=== PATIENT | male | born 1970 | race Caucasian/White ===

== ENCOUNTER 2016-08-07 13:11 | Emergency (ER) | payer OTHER ==
[~2016-08-07] VITALS: Ht 182.9 cm; Wt 94.0 kg
[~2016-08-07 13:11] MED LIST: CLOB-65 TOP; TACR0.1O TOP; UREA1CRE TOP
[2016-08-07 13:12] VITALS: TEMP 36.6; Ht 182.9 cm; Wt 94.0 kg
[2016-08-07] MEDS ORDERED: KETOROLAC TROMETHAMINE 30 MG/ML VIAL IV STA (13:26)
[2016-08-07] MEDS ORDERED: SODIUM CHLORIDE 0.9% 1000ML 1,000 ML IV STA (13:26)
[2016-08-07] MEDS ORDERED: HYDROmorphone INJ 1 MG/ML SYR IV STA ×2 (13:26→14:18)
[2016-08-07] MEDS ORDERED: ONDANSETRON INJ 2 MG/ML 2 ML VIAL IV STA (13:26)
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
[2016-08-07 13:53] LABS: BASO % 0.3 %; BASO ABS # 0.03 K/uL (0-0.2); COMPLETE YES; EOS % 5.8 %; IG% 0.3 %; LYMPH % 18.3 %; LYMPH ABS # 1.63 K/uL (1.2-3.4); MEAN CELL VOLUME 88.9 fL (80-100); MEAN CORPUSCULAR HEMOGLOBIN 31.7 pg (25-34); MEAN CORPUSCULAR HGB CONC 35.6 g/dl (32-36); MEAN PLATELET VOLUME 9.9 fL (7.4-10.4); MONO % 6.7 %; NEUT % 68.6 %; PLATELET COUNT 300 K/uL (130-400); RED BLOOD COUNT 4.61 M/uL (4.7-6.1); WHITE BLOOD COUNT 8.92 K/uL (4.8-10.8)
--- NOTE | 2016-08-07 14:05 | DIAGNOSTIC IMAGING REPORT ---
SINGLE VIEW CHEST CLINICAL HISTORY: Atypical chest pain. FINDINGS: An AP, portable, upright chest radiograph is compared to study dated 08/06/2015. The cardiomediastinal silhouette is unremarkable. Lobulated pleural-based density noted in the right lateral and right lower lung, likely representing hemothorax. There is associated atelectasis. Airspace opacities are seen at the left lung base. No pneumothorax is seen. There are acute and mildly distracted right lateral third through seventh rib fractures. IMPRESSION: 1. There are acute and distracted right lateral 3rd through 7th rib fractures. 2. There is lobulated pleural-based density seen in the right lateral and right lower lung. This likely represents hemothorax secondary to rib fractures. No pneumothorax is seen. 3. Airspace opacities are present the left lung base. This could represent atelectasis versus infectious/inflammatory pneumonitis. Clinical correlation will be required. Electronically signed by: David Navarrete M.D. 08/07/2016 2:03 PM Dictated Date/Time: 08/07/2016 1:58 PM
[2016-08-07] MEDS ORDERED: OPTIRAY 320 IV PRN (14:15)
[2016-08-07] MEDS ORDERED: METOCLOPRAMIDE HCL INJ 5 MG/ML 2 ML VIAL IV STA (14:18)
[2016-08-07 14:19] LABS: ALT/SGPT 32 U/L (12-78); AST/SGOT 23 U/L (15-37); BLOOD UREA NITROGEN 12 mg/dl (7-18); BUN/CREATININE RATIO 14.7 (10-20); CALCIUM 9.1 mg/dl (8.5-10.1); CARBON DIOXIDE 31 mmol/L (21-32); CHLORIDE 103 mmol/L (98-107); CREATININE 0.84 mg/dl (0.60-1.40); GLUCOSE 94 mg/dl (70-99); POTASSIUM 4.1 mmol/L (3.5-5.1); SODIUM 140 mmol/L (136-145)
[2016-08-07 14:21] LABS: ISTAT CREATININE 0.7 mg/dl (0.6-1.3); ISTAT HEMOGLOBIN 13.9 g/dl (14.0-18.0); ISTAT IONIZED CALCIUM 1.21 mmol/l (1.12-1.32)
[2016-08-07] MEDS ORDERED: HYDR-5688 PO (14:21)
[2016-08-07 14:25] LABS: ALKALINE PHOSPHATASE 66 U/L (45-117)
--- NOTE | 2016-08-07 14:49 | DIAGNOSTIC IMAGING REPORT ---
CT ANGIOGRAM OF THE CHEST CLINICAL HISTORY: Atypical chest pain COMPARISON STUDY: Chest x-ray dated 08/07/2016 TECHNIQUE: Following the IV administration of 119 mL of Optiray-320, CT angiogram of the thorax was performed from the thoracic inlet to the lung bases utilizing the pulmonary embolus protocol. Images are reviewed in the axial, sagittal, and coronal planes. IV contrast was administered without complication. MIP imaging was performed. CT DOSE: 581.18 mGy.cm FINDINGS: No pathologically enlarged axillary mediastinal or hilar lymph nodes were visualized. There was no evidence of thoracic aortic dilatation. There were no pulmonary artery filling defects to indicate acute pulmonary embolism. There is a svaak-rv-gjhbkkxf right pleural effusion. There are bibasal airspace opacities, likely atelectatic. There is a 5 mm solid subpleural nodule within the right upper lobe as visualized in image #[id number]. There are tiny extrapleural gas bubbles on the right. There is equivocal droplets of pleural air. There are fractures of the right third through seventh ribs. IMPRESSION: 1. No evidence of pneumothorax 2. Iwltn-qq-pqgobqeu right pleural effusion 3. Fractures the right third through seventh ribs 4. Bibasilar opacities likely atelectatic 5. Extrapleural gas bubbles on the right. Equivocal droplet of pleural air. 6. 5 mm subpleural solid nodule within the right upper lobe. Follow-up per Fleischner criteria is recommended. Please refer to below summary of Fleischner criteria recommendations for follow-up of incidental CT nodules (Gary Cantu, Guidelines for management of small pulmonary nodules detected on CT scans: A statement from the Fleischner Society, Radiology 237: [phone].) SOLID NODULES Solitary nodule size: <6 mm * low risk patients: no follow-up needed * high risk patients: optional CT at 12 months Solitary nodule size: 6-8 mm * low risk patients: follow-up at 6-12 months, then consider further follow-up at 18-24 months * high risk patients: initial follow-up CT at 6-12 months and then at 18-24 months if no change Solitary nodule size: >8 mm * either low or high risk patients - consider follow-up CT at 3 months, and/or CT-PET, and/or biopsy Multiple nodules size: <6 mm * low risk patients: no routine follow-up * high risk patients: optional CT at 12 months Multiple nodules size: 6-8 mm * low risk patients: follow-up at 3-6 months, then consider further follow-up at 18-24 months * high risk patients: follow-up at 3-6 months, then at 18-24 months if no change Multiple nodules size: >8 mm * low risk patients: follow-up at 3-6 months, then consider further follow-up at 18-24 months * high risk patients: follow-up at 3-6 months, then at 18-24 months if no change Note: newly detected indeterminate nodule in persons 35 years of age or older. * low risk patients: minimal or absent history of smoking and/or other known risk factors * high risk patients: history of smoking or of other known risk factors (e.g. first degree relative with lung cancer, or exposure to asbestos, radon, uranium) * if a nodule up to 8 mm is partly solid or is ground glass further follow-up is required after 24 months to exclude possible slow growing adenocarcinoma (AVANI) SUBSOLID NODULES Solitary pure ground-glass nodule * nodule size <6 mm - no CT follow-up required * nodule size >=6 mm - follow-up CT at 6-12 months, then every 2 years until 5 years Solitary part-solid nodule * nodule size <6 mm - no CT follow-up required * nodule size >=6 mm - follow-up CT at 3-6 months. If unchanged, and solid component remains <6 mm, then annual follow-up for 5 years Multiple subsolid nodules * nodule size <6 mm - follow-up CT at 3-6 months, consider further follow-up at 2 and 4 years if stable * nodule size >=6 mm - follow-up CT at 3-6 months, subsequent management based on the most suspicious nodule(s) Electronically signed by: Luis A Palafox M.D. 08/07/2016 2:47 PM Dictated Date/Time: 08/07/2016 2:39 PM
[2016-08-07 14:56] VITALS: O2SAT 95
[2016-08-07] MEDS ORDERED: LIDODERM (LIDOCAINE) PATCH 5% TD STA (15:01)
[2016-08-07] MEDS ORDERED: CYCLOBENZAPRINE HCL 5 MG TAB PO STA (15:01)
[2016-08-07] MEDS ORDERED: DOCU-94 PO (15:06)
[2016-08-07] MEDS ORDERED: OXYC-57 PO (15:06)
[2016-08-07] MEDS ORDERED: CYCL10TA6 PO (15:06)
[2016-08-07] MEDS ORDERED: SENN-61 PO (15:06)
[2016-08-07] MEDS ORDERED: NF656 TD (15:06)
[2016-08-07 15:11] VITALS: BP 103/62; PULSE 66; O2SAT 95
[2016-08-07] MEDS ORDERED: ALBUTEROL HFA 8 GM INHALER INH STA (15:27)
== END 2016-08-07 15:48 | disposition home or self-care (01) ==
LOC: C.EDB 13:12 → C.EDA 15:48
DX: S22.31XA Fracture of one rib, right side, initial encounter for closed fracture (principal); X58.XXXA Exposure to other specified factors, initial encounter; Z79.899 Other long term (current) drug therapy; Z83.3 Family history of diabetes mellitus; Z82.49 Family history of ischemic heart disease and other diseases of the circulatory system

== ENCOUNTER → 2016-08-13 | Outpatient (CLI) | payer OTHER ==
[~2016-08-13] MED LIST changes: -CLOB-65 TOP; +CYCL10TA6 PO; +DOCU-94 PO; +HYDR-5688 PO; +NF656 TD; +OXYC-57 PO; +SENN-61 PO; -TACR0.1O TOP; -UREA1CRE TOP
--- NOTE | 2016-08-13 15:06 | DIAGNOSTIC IMAGING REPORT ---
TWO VIEW CHEST CLINICAL HISTORY: Atypical chest pain. Rib fractures. FINDINGS: PA and lateral chest radiographs are compared to chest x-ray and chest CT dated 08/07/2016. The cardiomediastinal silhouette is unremarkable. Lobulated pleural-based fluid in the right lateral and lower lung is unchanged. There is associated atelectasis. Airspace opacities at the left lung base have improved from previous. No pneumothorax is seen. Again seen are numerous subacute and mildly distracted right sided rib fractures. IMPRESSION: 1. Again seen are numerous subacute right-sided rib fractures. 2. Unchanged lobulated pleural-based density seen in the right lateral and lower lung, likely representing pleural fluid/hemothorax secondary to rib fractures. No pneumothorax is seen. 3. Improved aeration at the left lung base as compared to 08/07/2016. Electronically signed by: David Navarrete M.D. 08/13/2016 3:04 PM Dictated Date/Time: 08/13/2016 2:57 PM
== END | disposition home or self-care (01) ==
LOC: C.RAD 14:09
PROVIDERS: ATTEND Physician Assistant
DX: J93.9 Pneumothorax, unspecified (principal)

== ENCOUNTER → 2016-08-27 | Outpatient (CLI) | payer OTHER ==
[~2016-08-27] MED LIST changes: -CYCL10TA6 PO; -DOCU-94 PO
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
== END | disposition home or self-care (01) ==
LOC: C.RAD 12:30
PROVIDERS: ATTEND Surgery
DX: J93.9 Pneumothorax, unspecified (principal)